=== PATIENT | male | born 1990 | race Caucasian/White ===

== ENCOUNTER → 2016-08-19 | Outpatient (CLI) | payer OTHER ==
[~2016-08-19] MED LIST: NORCO 7.5-3251 EACH PO
== END ==
LOC: KOH-I 08:30
DX: R74.0 Nonspecific elevation of levels of transaminase and lactic acid dehydrogenase [LDH] (principal); G47.13 Recurrent hypersomnia; G47.19 Other hypersomnia; G47.39 Other sleep apnea; J20.9 Acute bronchitis, unspecified; R07.89 Other chest pain; R53.81 Other malaise; R53.83 Other fatigue; K76.0 Fatty (change of) liver, not elsewhere classified
CPT/HCPCS: 76705

== ENCOUNTER → 2016-08-27 | Outpatient (CLI) | payer OTHER | LOC: NM 13:00 | DX: R10.11 Right upper quadrant pain (principal); R93.2 Abnormal findings on diagnostic imaging of liver and biliary tract | CPT/HCPCS: 78226; A9537 ==

== ENCOUNTER → 2016-09-04 | Outpatient (CLI) | payer OTHER | LOC: OPSV2 08:00 | DX: Z01.818 Encounter for other preprocedural examination (principal) ==

== ENCOUNTER → 2016-09-08 | Day surgery (SDC) | payer OTHER | END | disposition home or self-care (01) | LOC: OR 08:22 | PROVIDERS: Surgery | PROC: 0FT44ZZ Resection of Gallbladder, Percutaneous Endoscopic Approach (ICD-10-PCS; principal; 2016-09-08 10:05) | DX: K81.1 Chronic cholecystitis (principal); E66.01 Morbid (severe) obesity due to excess calories; G47.30 Sleep apnea, unspecified; K76.0 Fatty (change of) liver, not elsewhere classified; Z68.39 Body mass index [BMI] 39.0-39.9, adult; Z87.891 Personal history of nicotine dependence; Z82.49 Family history of ischemic heart disease and other diseases of the circulatory system; Z82.5 Family history of asthma and other chronic lower respiratory diseases; Z83.3 Family history of diabetes mellitus; Z79.899 Other long term (current) drug therapy; Z99.89 Dependence on other enabling machines and devices | CPT/HCPCS: J0295; J1100; J1885; J2250; J2405; J2710; J3010; J7030; J7050; J7120; Q9962 ==

== ENCOUNTER → 2016-09-18 | Outpatient (CLI) | payer OTHER | LOC: HEART 5 09:52 | DX: R06.02 Shortness of breath (principal); F17.210 Nicotine dependence, cigarettes, uncomplicated ==

== ENCOUNTER 2016-10-11 13:36 | Emergency (ER) | payer OTHER ==
[2016-10-11 16:00] LABS: HEMOGLOBIN 16.5 gm/dl (14.0-17.5); RED BLOOD COUNT 5.5 M/UL (4.20-5.50); WHITE BLOOD COUNT 9.8 K/UL (4.5-11.0)
[2016-10-11 16:26] LABS: BUN/CREATININE RATIO 11 (0-10)
== END 2016-10-11 21:00 | disposition home or self-care (01) ==
LOC: ER1 13:36
PROVIDERS: Student in an Organized Health Care Education/Training Program
DX: R07.9 Chest pain, unspecified (principal); R42 Dizziness and giddiness; R20.2 Paresthesia of skin; F17.210 Nicotine dependence, cigarettes, uncomplicated
CPT/HCPCS: 36415; 71010; 80053; 82550; 82553; 83874; 84484; 85025; 85379; 93005; 96360; 99285

== ENCOUNTER → 2016-11-18 | Outpatient (CLI) | payer OTHER ==
[2016-11-18 13:24] LABS: HEMOGLOBIN 16.4 gm/dl (14.0-17.5); RED BLOOD COUNT 5.42 M/UL (4.20-5.50)
[2016-11-18 13:43] LABS: BUN/CREATININE RATIO 15 (0-10)
== END ==
LOC: LAB 12:44
PROVIDERS: Emergency Medicine
DX: R07.89 Other chest pain (principal); R74.0 Nonspecific elevation of levels of transaminase and lactic acid dehydrogenase [LDH]; R10.11 Right upper quadrant pain; G47.13 Recurrent hypersomnia; G47.33 Obstructive sleep apnea (adult) (pediatric); G47.19 Other hypersomnia; G47.39 Other sleep apnea; J20.9 Acute bronchitis, unspecified; K82.8 Other specified diseases of gallbladder; R53.81 Other malaise; R53.83 Other fatigue; R94.31 Abnormal electrocardiogram [ECG] [EKG]
CPT/HCPCS: 36415; 71020; 80053; 84484; 85027; 85379; 93005

== ENCOUNTER → 2016-11-25 | Outpatient (CLI) | payer OTHER | LOC: LAB 09:45 | DX: R07.89 Other chest pain (principal); E66.9 Obesity, unspecified; R06.00 Dyspnea, unspecified | CPT/HCPCS: 36415; 80061; 86141 ==

== ENCOUNTER → 2016-12-09 | Outpatient (CLI) | payer OTHER | LOC: NM 14:30 | DX: R07.89 Other chest pain (principal); R06.00 Dyspnea, unspecified; Z82.49 Family history of ischemic heart disease and other diseases of the circulatory system | CPT/HCPCS: 93017 ==

== ENCOUNTER 2016-12-10 20:53 | Emergency (ER) | payer OTHER | END 2016-12-10 22:35 | disposition home or self-care (01) | LOC: ER1 20:53 | DX: R07.2 Precordial pain (principal); R07.89 Other chest pain; R06.02 Shortness of breath | CPT/HCPCS: 36415; 71020; 84484; 99285 ==

== ENCOUNTER 2020-07-05 21:38 | Emergency (ER) | payer OTHER ==
[~2020-07-05 21:38] MED LIST changes: +AUGMENTIN 875-1 EACH PO; +ECOTRIN81 MG PO; +IMDUR ER TAB 3030 MG PO; +LEVAQUIN500 MG PO; +LODINE CAP 300300 MG PO; +NITROGLYCERIN0.4 MG SL; +NORVASC 5 MG TAB5 MG PO; +TOPROL XL200 MG PO; +TYLENOL W/CODEIN1 E1 PO
[2020-07-05 22:03] LABS: HEMOGLOBIN 16.2 gm/dl (14.0-17.5); RED BLOOD COUNT 5.51 M/UL (4.20-5.50)
[2020-07-05 22:25] LABS: BUN/CREATININE RATIO 19 (0-10)
== END 2020-07-06 02:45 | disposition home or self-care (01) ==
LOC: ER1 21:38
PROVIDERS: Physician Assistant Medical
DX: R07.1 Chest pain on breathing (principal); R06.02 Shortness of breath; I50.9 Heart failure, unspecified; F17.200 Nicotine dependence, unspecified, uncomplicated; Z95.0 Presence of cardiac pacemaker; Z20.822 Contact with and (suspected) exposure to COVID-19
CPT/HCPCS: 71045; 71275; 80053; 82550; 82553; 83874; 83880; 84484; 85025; 85379; 85610; 93005; 99285; J7030; Q9967; U0002

== ENCOUNTER → 2020-07-11 | Outpatient (CLI) | payer OTHER | LOC: HEART 5 13:00 → NM 14:30 | DX: Z53.9 Procedure and treatment not carried out, unspecified reason (principal) ==

== ENCOUNTER → 2020-08-26 | Outpatient (CLI) | payer OTHER | LOC: NM 12:39 → EDSTATUS 13:00 → NM 13:00 | DX: I20.8 Other forms of angina pectoris (principal); I51.7 Cardiomegaly | CPT/HCPCS: ECHO; 78452; 93017; 93306; A9502; J2785 ==

== ENCOUNTER → 2020-08-27 | Outpatient (CLI) | payer OTHER | LOC: NM 14:03 | DX: I20.9 Angina pectoris, unspecified (principal); R94.39 Abnormal result of other cardiovascular function study ==

== ENCOUNTER → 2020-09-03 | Outpatient (CLI) | payer OTHER | LOC: LAB 10:17 | DX: I10 Essential (primary) hypertension (principal); I20.9 Angina pectoris, unspecified; I47.2 Ventricular tachycardia; R00.2 Palpitations | CPT/HCPCS: 36415; 80061; 83735; 84439; 84443; 84481 ==

== ENCOUNTER → 2020-11-22 | Outpatient (CLI) | payer OTHER ==
[2020-11-22 12:38] LABS: HEMOGLOBIN 16.6 gm/dl (14.0-17.5); RED BLOOD COUNT 5.51 M/UL (4.20-5.50)
[2020-11-22 13:12] LABS: BUN/CREATININE RATIO 19 (0-10)
[2020-11-24 17:10] LABS: CHOLESTEROL, TOTAL 246 mg/dL (100-199); HDL SIZE 8.7 nm (>=9.2); HDL-C 37 mg/dL (>39); HDL-P (TOTAL) 24.1 umol/L (>=30.5); LARGE HDL-P 2.6 umol/L (>=4.8); LARGE VLDL-P 14.4 nmol/L (<=2.7); LDL-C 168 mg/dL (0-99); LDL-P 2185 nmol/L (<1000); LP-IR SCORE 80 (<=45); SMALL LDL-P 888 nmol/L (<=527); TRIGLYCERIDES 221 mg/dL (0-149)
== END ==
LOC: LAB 10:43
PROVIDERS: Emergency Medicine
DX: M54.5 Low back pain (principal); G60.3 Idiopathic progressive neuropathy; G56.03 Carpal tunnel syndrome, bilateral upper limbs; R06.02 Shortness of breath
CPT/HCPCS: 36415; 71046; 72110; 80053; 80061; 83704; 83880; 84443; 84550; 85025; 85379

== ENCOUNTER 2021-05-22 11:33 | Emergency (ER) | payer OTHER ==
[2021-05-22 12:58] LABS: HEMOGLOBIN 16.7 gm/dl (14.0-17.5); RED BLOOD COUNT 5.53 M/UL (4.20-5.50); WHITE BLOOD COUNT 10.2 K/UL (4.5-11.0)
[2021-05-22 13:23] LABS: BUN/CREATININE RATIO 17 (0-10)
[2021-05-23 00:59] LABS: ACINETOBACTER BAUMANNII Not Detected (Negative); CANDIDA ALBICANS Not Detected (Negative); CANDIDA KRUSEI Not Detected (Negative); CANDIDA TROPICALIS Not Detected (Negative); ENTEROCOCCUS Not Detected (Negative); ESCHERICHIA COLI Not Detected (Negative); HAEMOPHILUS INFLUENZAE Not Detected (Negative); KLEBSIELLA OXYTOCA Not Detected (Negative); KLEBSIELLA PNEUMONIAE Not Detected (Negative); KPC-CARBAPENEM-RESISTANCE GENE Not Detected (Negative); PROTEUS Not Detected (Negative); PSEUDOMONAS AERUGINOSA Not Detected (Negative); SERRATIA MARCESANS Not Detected (Negative); STREP AGALACTIAE (GROUP B) Not Detected (Negative); STREP PYOGENES (GROUP A) Not Detected (Negative); STREPTOCOCCUS Not Detected (Negative); mecA (METHICILLIN RESIST GENE Not Detected (Negative); vanA/B (VANCOMYCIN RESIST GENE Not Detected (Negative)
[2021-05-23 02:21] LABS: STAPHYLOCOCCUS DETECTED (Negative)
[2021-05-23 02:22] LABS: STAPHYLOCOCCUS AUREUS DETECTED (Negative)
== END 2021-05-22 17:08 | disposition home or self-care (01) ==
LOC: ER1 11:33
PROVIDERS: Nurse Practitioner
DX: U07.1 COVID-19 (principal); R00.0 Tachycardia, unspecified; F17.210 Nicotine dependence, cigarettes, uncomplicated; I10 Essential (primary) hypertension; E78.5 Hyperlipidemia, unspecified; Z95.0 Presence of cardiac pacemaker; Z90.49 Acquired absence of other specified parts of digestive tract
CPT/HCPCS: 80053; 81001; 82550; 82553; 83605; 83874; 84484; 85025; 85379; 85610; 85652; 85730; 86140; 87040; 87077; 87150; 87186; 93005; 96374; 99285; J2405; Q9967

== ENCOUNTER 2021-05-27 08:01 | Inpatient (IN) | payer OTHER ==
[~2021-05-27] VITALS: Ht 185.4 cm; Wt 182.8 kg
[2021-05-27 09:24] LABS: HEMOGLOBIN 15.2 gm/dl (14.0-17.5); RED BLOOD COUNT 5.38 M/UL (4.20-5.50); WHITE BLOOD COUNT 11.6 K/UL (4.5-11.0)
[2021-05-27 21:39] LABS: ACINETOBACTER BAUMANNII Not Detected (Negative); CANDIDA ALBICANS Not Detected (Negative); CANDIDA KRUSEI Not Detected (Negative); CANDIDA TROPICALIS Not Detected (Negative); ENTEROCOCCUS Not Detected (Negative); ESCHERICHIA COLI Not Detected (Negative); HAEMOPHILUS INFLUENZAE Not Detected (Negative); KLEBSIELLA OXYTOCA Not Detected (Negative); KLEBSIELLA PNEUMONIAE Not Detected (Negative); KPC-CARBAPENEM-RESISTANCE GENE Not Detected (Negative); PROTEUS Not Detected (Negative); PSEUDOMONAS AERUGINOSA Not Detected (Negative); SERRATIA MARCESANS Not Detected (Negative); STREP AGALACTIAE (GROUP B) Not Detected (Negative); STREP PYOGENES (GROUP A) Not Detected (Negative); STREPTOCOCCUS Not Detected (Negative); mecA (METHICILLIN RESIST GENE Not Detected (Negative); vanA/B (VANCOMYCIN RESIST GENE Not Detected (Negative)
[2021-05-27 23:14] LABS: STAPHYLOCOCCUS DETECTED (Negative)
[2021-05-27 23:17] LABS: STAPHYLOCOCCUS AUREUS DETECTED (Negative)
[2021-05-28 03:31] LABS: HEMOGLOBIN 15.2 gm/dl (14.0-17.5); RED BLOOD COUNT 5.19 M/UL (4.20-5.50); WHITE BLOOD COUNT 13.7 K/UL (4.5-11.0)
--- NOTE | 2021-05-28 03:42 | NUR ---
NOTIFIED DR. BOB OF PTS PLATELET LEVEL. NO NEW ORDERS AT THIS TIME.
[2021-05-28 04:15] LABS: BUN/CREATININE RATIO 54 (0-10)
[2021-05-28 05:34] LABS: BORDETELLA PARAPERTUSSIS Not Detected (Not Detectd); BORDETELLA PERTUSSIS Not Detected (Not Detectd); CHLAMYDIA PNEUMONIAE Not Detected (Not Detectd); CORONAVIRUS HKU1 Not Detected (Not Detectd); CORONAVIRUS NL63 Not Detected (Not Detectd); CORONAVIRUS OC43 Not Detected (Not Detectd); CORONOAVIRUS 229E Not Detected (Not Detectd); HUMAN METAPNEUMOVIRUS Not Detected (Not Detectd); HUMAN RHINOVIRUS/ENTEROVIRUS Not Detected (Not Detectd); INFLUENZA A Not Detected (Not Detectd); INFLUENZA B Not Detected (Not Detectd); MYCOPLASMA PNEUMONIAE Not Detected (Not Detectd); PARAINFLUENZA VIRUS 1 Not Detected (Not Detectd); PARAINFLUENZA VIRUS 2 Not Detected (Not Detectd); PARAINFLUENZA VIRUS 3 Not Detected (Not Detectd); PARAINFLUENZA VIRUS 4 Not Detected (Not Detectd); RESPIRATORY SYNCYTIAL VIRUS Not Detected (Not Detectd)
[2021-05-28 06:49] LABS: SARS-CoV-2 NOT DETECTED (Not Detectd)
[2021-05-28 17:06] LABS: ACINETOBACTER BAUMANNII Not Detected (Negative); CANDIDA ALBICANS Not Detected (Negative); CANDIDA KRUSEI Not Detected (Negative); CANDIDA TROPICALIS Not Detected (Negative); ENTEROCOCCUS Not Detected (Negative); ESCHERICHIA COLI Not Detected (Negative); HAEMOPHILUS INFLUENZAE Not Detected (Negative); KLEBSIELLA OXYTOCA Not Detected (Negative); KLEBSIELLA PNEUMONIAE Not Detected (Negative); KPC-CARBAPENEM-RESISTANCE GENE Not Detected (Negative); PROTEUS Not Detected (Negative); PSEUDOMONAS AERUGINOSA Not Detected (Negative); SERRATIA MARCESANS Not Detected (Negative); STREP AGALACTIAE (GROUP B) Not Detected (Negative); STREP PYOGENES (GROUP A) Not Detected (Negative); STREPTOCOCCUS Not Detected (Negative); mecA (METHICILLIN RESIST GENE Not Detected (Negative); vanA/B (VANCOMYCIN RESIST GENE Not Detected (Negative)
[2021-05-28 20:39] LABS: STAPHYLOCOCCUS DETECTED (Negative); STAPHYLOCOCCUS AUREUS DETECTED (Negative)
[2021-05-29 04:23] LABS: HEMOGLOBIN 14.4 gm/dl (14.0-17.5); RED BLOOD COUNT 4.9 M/UL (4.20-5.50)
[2021-05-29 05:03] LABS: BUN/CREATININE RATIO 60 (0-10)
[2021-05-30 03:51] LABS: HEMOGLOBIN 15.1 gm/dl (14.0-17.5); RED BLOOD COUNT 5.15 M/UL (4.20-5.50); WHITE BLOOD COUNT 17.2 K/UL (4.5-11.0)
[2021-05-30 04:24] LABS: BUN/CREATININE RATIO 52 (0-10)
[2021-05-31 03:50] LABS: HEMOGLOBIN 14.1 gm/dl (14.0-17.5); RED BLOOD COUNT 4.87 M/UL (4.20-5.50)
[2021-05-31 03:52] LABS: WHITE BLOOD COUNT 12.5 K/UL (4.5-11.0)
[2021-05-31 04:16] LABS: BUN/CREATININE RATIO 44 (0-10)
[2021-06-01 03:52] LABS: HEMOGLOBIN 14.2 gm/dl (14.0-17.5); RED BLOOD COUNT 4.84 M/UL (4.20-5.50)
[2021-06-01 04:17] LABS: BUN/CREATININE RATIO 43 (0-10)
[2021-06-01 15:10] LABS: ORGANISM ID Not indicated. (.); SPECIMEN SOURCE Urine (.); STREPTOCOCCUS PNEUMONIAE AG Negative (Negative)
[2021-06-02 06:29] LABS: HEMOGLOBIN 13.7 gm/dl (14.0-17.5); RED BLOOD COUNT 4.72 M/UL (4.20-5.50)
[2021-06-02 06:43] LABS: WHITE BLOOD COUNT 8.9 K/UL (4.5-11.0)
[2021-06-02 06:48] LABS: BUN/CREATININE RATIO 43 (0-10)
[2021-06-03 04:04] LABS: HEMOGLOBIN 13.3 gm/dl (14.0-17.5); RED BLOOD COUNT 4.57 M/UL (4.20-5.50); WHITE BLOOD COUNT 10.3 K/UL (4.5-11.0)
[2021-06-03 04:33] LABS: BUN/CREATININE RATIO 37 (0-10)
[2021-06-04 06:28] LABS: HEMOGLOBIN 13.5 gm/dl (14.0-17.5); RED BLOOD COUNT 4.68 M/UL (4.20-5.50); WHITE BLOOD COUNT 10.3 K/UL (4.5-11.0)
[2021-06-04 07:30] LABS: BUN/CREATININE RATIO 36 (0-10)
[2021-06-05 05:56] LABS: HEMOGLOBIN 12.9 gm/dl (14.0-17.5); RED BLOOD COUNT 4.52 M/UL (4.20-5.50); WHITE BLOOD COUNT 10.7 K/UL (4.5-11.0)
[2021-06-05 06:23] LABS: BUN/CREATININE RATIO 30 (0-10)
[2021-06-05] MEDS ORDERED: ASPIRIN EC81 MG PO (10:28)
[2021-06-05] MEDS ORDERED: LOPRESSOR 50 MG50 MG PO (10:28)
[2021-06-05] MEDS ORDERED: MEDROL DOSEPAK 24 MG PO (10:28)
[2021-06-05] MEDS ORDERED: BUDESONIDE0.5 MG/2 M NEB (10:28)
[2021-06-05] MEDS ORDERED: ELIQUIS 5 MG TAB5 MG PO (10:28)
[2021-06-05] MEDS ORDERED: PROAIR DIGIHAL90 MCG INH (10:30)
--- NOTE | 2021-06-05 17:50 | NUR ---
SPOKE WITH HOME HEALTH STAFF, MADE THEM AWARE THAT PATIENT IS BEING DISCHARGED TODAY AND WILL NEED FIRST DOSE OF ANTIBIOTIC TOMORROW. VERBALIZED UNDERSTANDING.
== END 2021-06-05 18:00 | disposition home health service (06) | DRG 871 ==
LOC: ER1 08:01 → CDU 14:03 → PROG CARE 14:03
PROVIDERS: Emergency Medicine; Physician Assistant Medical; Student in an Organized Health Care Education/Training Program; ADMIT Internal Medicine
PROC: 8E0ZXY6 Isolation (ICD-10-PCS; principal; 2021-05-27)
PROC: XW033E5 Introduction of Remdesivir Anti-infective into Peripheral Vein, Percutaneous Approach, New Technology Group 5 (ICD-10-PCS; 2021-05-27)
PROC: 3E0333Z Introduction of Anti-inflammatory into Peripheral Vein, Percutaneous Approach (ICD-10-PCS; 2021-05-27)
PROC: 5A09457 Assistance with Respiratory Ventilation, 24-96 Consecutive Hours, Continuous Positive Airway Pressure (ICD-10-PCS; 2021-05-27)
PROC: XW033H5 Introduction of Tocilizumab into Peripheral Vein, Percutaneous Approach, New Technology Group 5 (ICD-10-PCS; 2021-05-27)
PROC: B24BZZ4 Ultrasonography of Heart with Aorta, Transesophageal (ICD-10-PCS; 2021-05-29)
PROC: 02HV33Z Insertion of Infusion Device into Superior Vena Cava, Percutaneous Approach (ICD-10-PCS; 2021-06-03)
DX: A41.01 Sepsis due to Methicillin susceptible Staphylococcus aureus (principal); J12.82 Pneumonia due to coronavirus disease 2019; J80 Acute respiratory distress syndrome; I26.90 Septic pulmonary embolism without acute cor pulmonale; I76 Septic arterial embolism; M62.82 Rhabdomyolysis; N17.9 Acute kidney failure, unspecified; E87.1 Hypo-osmolality and hyponatremia; Z68.43 Body mass index [BMI] 50.0-59.9, adult; Z20.822 Contact with and (suspected) exposure to COVID-19; E66.01 Morbid (severe) obesity due to excess calories; A41.89 Other specified sepsis; I10 Essential (primary) hypertension; B34.9 Viral infection, unspecified; S93.402A Sprain of unspecified ligament of left ankle, initial encounter; R65.20 Severe sepsis without septic shock; F17.210 Nicotine dependence, cigarettes, uncomplicated; R74.01 Elevation of levels of liver transaminase levels; E11.65 Type 2 diabetes mellitus with hyperglycemia; G47.33 Obstructive sleep apnea (adult) (pediatric); E86.9 Volume depletion, unspecified; D69.6 Thrombocytopenia, unspecified; Z90.49 Acquired absence of other specified parts of digestive tract; Z95.0 Presence of cardiac pacemaker; Z82.49 Family history of ischemic heart disease and other diseases of the circulatory system; Z79.899 Other long term (current) drug therapy; Z79.82 Long term (current) use of aspirin; Z79.01 Long term (current) use of anticoagulants; Z99.81 Dependence on supplemental oxygen; Z23 Encounter for immunization
CPT/HCPCS: ECHO; 36415; 36600; 71045; 73600; 73620; 80048; 80053; 80202; 82550; 82553; 82803; 82962; 83036; 83605; 83735; 83874; 83880; 84100; 84484; 85025; 85027; 85379; 85384; 85610; 85652; 85730; 86140; 86900; 86901; 87040; 87077; 87081; 87086; 87150; 87186; 87278; 87633; 87899; 93005; 93306; 94640; 94660; 94664; 94760; 96374; 96375; 97110; 97162; 97166; 97530; 97530-GP-CQ; 99285; C1751; C9113; J0456; J0690; J0692; J0696; J1100; J1335; J2020; J3370; J7030; J7060; J7120; Q0249; Q9967; U0002

== ENCOUNTER → 2021-06-12 | Outpatient (CLI) | payer OTHER ==
[~2021-06-12] MED LIST changes: +ASPIRIN EC81 MG PO; +BUDESONIDE0.5 MG/2 M NEB; +ELIQUIS 5 MG TAB5 MG PO; +LOPRESSOR 50 MG50 MG PO; +MEDROL DOSEPAK 24 MG PO; +PROAIR DIGIHAL90 MCG INH
[2021-06-12 16:01] LABS: HEMOGLOBIN 12.4 gm/dl (14.0-17.5); RED BLOOD COUNT 4.3 M/UL (4.20-5.50); WHITE BLOOD COUNT 9.6 K/UL (4.5-11.0)
[2021-06-12 16:23] LABS: BUN/CREATININE RATIO 26 (0-10)
== END ==
LOC: LBRF 15:36
PROVIDERS: Emergency Medicine
DX: U07.1 COVID-19 (principal); J12.82 Pneumonia due to coronavirus disease 2019; A41.9 Sepsis, unspecified organism
CPT/HCPCS: 80053; 85025; 85652; 86140

== ENCOUNTER → 2021-07-24 | Outpatient (CLI) | payer OTHER | LOC: LAB 15:42 | DX: R78.81 Bacteremia (principal); Z86.16 Personal history of COVID-19; I76 Septic arterial embolism; R06.02 Shortness of breath | CPT/HCPCS: 36415; 87040 ==

== ENCOUNTER 2021-07-30 14:41 | Emergency (ER) | payer OTHER ==
[2021-07-30 16:29] LABS: HEMOGLOBIN 13.5 gm/dl (14.0-17.5); RED BLOOD COUNT 5.19 M/UL (4.20-5.50); WHITE BLOOD COUNT 6.3 K/UL (4.5-11.0)
[2021-07-30 16:57] LABS: BUN/CREATININE RATIO 13 (0-10)
== END 2021-07-30 22:11 | disposition home or self-care (01) ==
LOC: ER1 14:41
PROVIDERS: Physician Assistant
DX: R00.0 Tachycardia, unspecified (principal); R06.02 Shortness of breath; F17.200 Nicotine dependence, unspecified, uncomplicated; I10 Essential (primary) hypertension
CPT/HCPCS: 71045; 80053; 82550; 82553; 83605; 83874; 84439; 84443; 84484; 85025; 87040; 93005; 99285; Q9967

== ENCOUNTER 2021-08-28 12:27 | Observation (INO) | payer OTHER ==
[~2021-08-28] VITALS: Ht 185.4 cm; Wt 158.3 kg
[2021-08-28 13:25] LABS: HEMOGLOBIN 13.8 gm/dl (14.0-17.5); RED BLOOD COUNT 5.33 M/UL (4.20-5.50); WHITE BLOOD COUNT 15.7 K/UL (4.5-11.0)
[2021-08-28 13:44] LABS: BUN/CREATININE RATIO 12 (0-10)
[2021-08-28] MEDS ORDERED: ELIQUIS5 MG PO (16:25)
[2021-08-28] MEDS ORDERED: LOPRESSOR50 MG PO (16:26)
[2021-08-28] MEDS ORDERED: ECOTRIN81 MG PO (16:28)
[2021-08-29 04:23] LABS: HEMOGLOBIN 13.1 gm/dl (14.0-17.5); RED BLOOD COUNT 5.03 M/UL (4.20-5.50); WHITE BLOOD COUNT 12.6 K/UL (4.5-11.0)
[2021-08-29 04:46] LABS: BUN/CREATININE RATIO 12 (0-10)
[2021-08-29] MEDS ORDERED: LEVOFLOXACIN500 MG PO (10:16)
[2021-08-29 21:14] LABS: CHLAMYDIA TRACHOMATIS, NAA Negative (Negative); NEISSERIA GONORRHOEAE, NAA Negative (Negative)
== END 2021-08-29 11:50 | disposition home or self-care (01) ==
LOC: ER1 12:27 → CDU 15:52 → MED SURG 4 16:55
PROVIDERS: Emergency Medicine; Physician Assistant Medical; ADMIT Internal Medicine
DX: N45.1 Epididymitis (principal); I10 Essential (primary) hypertension; G47.33 Obstructive sleep apnea (adult) (pediatric); F17.210 Nicotine dependence, cigarettes, uncomplicated; R73.03 Prediabetes; E66.01 Morbid (severe) obesity due to excess calories; Z68.42 Body mass index [BMI] 45.0-49.9, adult; Z86.16 Personal history of COVID-19; Z91.14 Patient's other noncompliance with medication regimen; Z95.0 Presence of cardiac pacemaker; Z86.711 Personal history of pulmonary embolism; Z79.01 Long term (current) use of anticoagulants; Z79.82 Long term (current) use of aspirin; Z79.899 Other long term (current) drug therapy
CPT/HCPCS: 36415; 76870; 80048; 80053; 81001; 83605; 83735; 85025; 85027; 87040; 87077; 87086; 87186; 96365; 96366; 96374; 96375; 96376; 99285; G0378; J0696; J1956; J2270

== ENCOUNTER → 2021-10-03 | Outpatient (CLI) | payer OTHER ==
[~2021-10-03] MED LIST changes: +ELIQUIS5 MG PO; +LEVOFLOXACIN500 MG PO; +LOPRESSOR50 MG PO
== END ==
LOC: KOH-I 08:00
DX: R74.01 Elevation of levels of liver transaminase levels (principal); K76.0 Fatty (change of) liver, not elsewhere classified
CPT/HCPCS: 76705

== ENCOUNTER → 2021-10-10 | Outpatient (CLI) | payer OTHER | LOC: CT 13:00 → KOH-I 13:00 → CT 13:12 | DX: I26.90 Septic pulmonary embolism without acute cor pulmonale (principal); R91.1 Solitary pulmonary nodule | CPT/HCPCS: 71260; Q9967 ==

== ENCOUNTER → 2021-10-27 | Outpatient (CLI) | payer OTHER | LOC: SLEEP 15:30 | DX: G47.33 Obstructive sleep apnea (adult) (pediatric) (principal) | CPT/HCPCS: 95811 ==